=== PATIENT | female | born 1990 | race Caucasian/White ===

== ENCOUNTER 2016-08-01 23:55 | Emergency (ER) | payer OTHER ==
[~2016-08-01] VITALS: Ht 154.9 cm; Wt 65.8 kg
--- NOTE | 2016-08-02 00:11 | ED CARDIAC/CP/PALPITATIONS ---
History of Present Illness General Chief Complaint: Chest Pain Stated Complaint: "CHEST PAIN [id number]" Source: patient Exam Limitations: no limitations Vital Signs & Intake/Output Vital Signs & Intake/Output Vital Signs Date Time Temp Pulse Resp B/P B/P Pulse O2 O2 Flow FiO2 Mean Ox Delivery Rate 08/02 0019 96.8 75 18 127/78 99 Room Air Allergies Coded Allergies: No Known Drug Allergies (NKDA 08/02/16) Reconcile Medications Ibuprofen 600 MG TABLET 1 TAB PO TID PRN PAIN with food Triage Nurses Notes Reviewed? yes Onset: Gradual Duration: minute(s): Timing: single episode today Quality/Severity: moderate Location: right sided chest pain, now resolved. Radiation: no radiation Activities at Onset: none Prior Chest Pain/Card Workup: no prior chest pain Modifying Factors: Improves With: rest. Worsens With: palpation. Associated Symptoms: CHEST WALL DISCOMFORT HPI: 26 yo woman with several weeks of intermittent right sided chest pressure that lasted 45 minutes and selft resolved. She notes no radiation, shortness of breath, dyspnea, wheezing, or cough. She is otherwise well. Past History Travel History Traveled to [place] past 21 day No Medical History Any Pertinent Medical History? none Surgical History Surgical History: none Family History Hx Contributory? No Review of Systems Review of Systems Constitutional: Reports: no symptoms. EENTM: Reports: no symptoms. Respiratory: Reports: no symptoms. Cardiovascular: Reports: no symptoms. GI: Reports: no symptoms. Genitourinary: Reports: no symptoms. Musculoskeletal: Reports: no symptoms. Skin: Reports: no symptoms. Neurological/Psychological: Reports: no symptoms. Hematologic/Endocrine: Reports: no symptoms. Immunologic/Allergic: Reports: no symptoms. All Other Systems: Reviewed and Negative Physical Exam Physical Exam General Appearance: well developed/nourished, no apparent distress Head: atraumatic, normal appearance Eyes: Bilateral: normal appearance. Ears, Nose, Throat: normal pharynx, normal ENT inspection Neck: normal inspection, supple, full range of motion Respiratory: mild right sided chest wall tenderness to palpation. Cardiovascular: regular rate/rhythm Gastrointestinal: normal bowel sounds, soft, non-tender, no organomegaly Back: normal inspection Extremities: normal inspection, normal capillary refill, normal range of motion, no edema Neurologic/Psych: no motor/sensory deficits, awake, alert, oriented x 3 Skin: intact, normal color, warm/dry Core Measures ACS in differential dx? No Severe Sepsis Present: No Septic Shock Present: No Progress Differential Diagnosis: costochondritis, pulmonary embolism, i doubt mi or unstable angina Plan of Care: Orders Procedure Date/time Status D-DIMER 08/03 7 Complete TROPONIN LEVEL 08/02 5 Complete HUMAN BETA HCG SCREEN 08/02 5 Complete COMPREHENSIVE METABOLIC PANEL 08/02 5 Complete CBC WITHOUT DIFFERENTIAL 08/02 5 Complete EKG 08/01 2357 Active Laboratory Tests 08/02/16 0015: Anion Gap 14, Estimated GFR > 60, BUN/Creatinine Ratio 22.5, Glucose 88, Calcium 10.0, Total Bilirubin 0.6, AST 19, ALT 37, Alkaline Phosphatase 64, Troponin I < 0.01, Total Protein 7.7, Albumin 4.8, Globulin 2.9, Albumin/Globulin Ratio 1.7, Total Beta HCG NEGATIVE, D-Dimer < 200, CBC w Diff NO MAN DIFF REQ, RBC 5.17, MCV 86.9, MCH 29.2, RDW 12.5, MPV 7.9, Gran % 60.9, Lymphocytes % 29.8, Monocytes % 7.2, Eosinophils % 1.7, Basophils % 0.4, Absolute Granulocytes 6.5, Absolute Lymphocytes 3.2, Absolute Monocytes 0.8 H, Absolute Eosinophils 0.2, Absolute Basophils 0, PUBS MCHC 33.5 Diagnostic Imaging: Viewed by Me: Radiology Read. Discussed w/RAD: Radiology Read. CXR Impression: no acute abnormality, no infiltrates, normal size heart, normal mediastinum Initial ED EKG: normal axis, normal intervals, normal p-waves, normal QRS complex, normal sinus rhythm Comments: PATIENT: MAKSIM US PRESENT AGE: 26 PATIENT ACCOUNT NO: [id number] : 90 LOCATION: [facility] ORDERING PHYSICIAN: JAYDEN JUSTIN MD SERVICE DATE: 08/02/16 EXAM TYPE: RAD - XRY-CHEST XRAY, PA AND LATERAL EXAMINATION: XR CHEST CLINICAL INFORMATION: Chest pain COMPARISON: None TECHNIQUE: 2 views of the chest were obtained. FINDINGS: The lungs are well expanded. There is no focal consolidation, edema, or effusion. No pneumothorax. The cardiomediastinal silhouette is within normal limits. No acute osseous abnormality. IMPRESSION: No acute pulmonary findings. DICTATED BY: ANGIE CAPPS MD DATE/TIME DICTATED:08/02/16112 WIDTH STRIPPER:SAMMY DATE/TIME TRANSCRIBED:08/02/16112 CONFIDENTIAL, DO NOT COPY WITHOUT APPROPRIATE AUTHORIZATION. <Electronically signed in Other Vendor System> SIGNED BY: JEFRY ROME,ANGIE 08/02 Departure Departure Disposition: HOME OR SELF CARE Condition: Stable Clinical Impression Primary Impression: Chest pain Departure Forms: Customer Survey General Discharge Information Prescriptions: Current Visit Scripts Ibuprofen 1 TAB PO TID PRN PAIN #30 TAB with food Comments 08/02/16, 4:15AM... benign labs/cxr/ekg... pt safe for discharge... discussed at length... close follow up encouraged. Critical Care Note Critical Care Note Critical Care Time: non-applicable
[2016-08-02 00:19] VITALS: BP 127/78
[2016-08-02 00:44] LABS: ABSOLUTE BASOPHIL COUNT 0 /CUMM (0.0-0.2); ABSOLUTE EOSINOPHIL COUNT 0.2 /CUMM (0.0-0.7); ABSOLUTE GRANULOCYTE CT 6.5 /CUMM (1.4-6.5); ABSOLUTE LYMPH COUNT 3.2 /CUMM (1.2-3.4); ABSOLUTE MONOCYTE COUNT 0.8 /CUMM (0.10-0.60); BASOPHIL % 0.4 % (0.0-2.0); EOSINOPHIL % 1.7 % (0-5); GRANULOCYTE % 60.9 % (42.2-75.2); MEAN CORPUSCULAR HGB 29.2 PG (27.0-31.0); MEAN CORPUSCULAR HGB CONC 33.5 G/DL (33.0-37.0); MEAN CORPUSCULAR VOLUME 86.9 FL (81.0-99.0); MEAN PLATELET VOLUME 7.9 FL (7.4-10.4); PLATELET COUNT 291 /CUMM (130-400); RBC DISTRIBUTION WIDTH 12.5 % (11.5-14.5); RED BLOOD CELL CT 5.17 /CUMM (4.20-5.40); WHITE BLOOD CELL COUNT 10.7 /CUMM (4.8-10.8)
--- NOTE | 2016-08-02 01:18 | RADIOLOGY REPORT ---
EXAMINATION: XR CHEST CLINICAL INFORMATION: Chest pain COMPARISON: None TECHNIQUE: 2 views of the chest were obtained. FINDINGS: The lungs are well expanded. There is no focal consolidation, edema, or effusion. No pneumothorax. The cardiomediastinal silhouette is within normal limits. No acute osseous abnormality. IMPRESSION: No acute pulmonary findings.
[2016-08-02] MEDS ORDERED: IBUPROFEN600 M1 PO (04:14)
== END 2016-08-02 04:25 ==
LOC: ERH 23:55
PROVIDERS: Pediatrics
DX: R07.89 Other chest pain (principal)
CPT/HCPCS: 93005; 93010